=== PATIENT | male | born 1985 | race Caucasian/White ===

== ENCOUNTER 2020-10-16 17:35 | Emergency (ER) | payer MEDICAID ==
[~2020-10-16] VITALS: Ht 167.6 cm; Wt 70.0 kg
[2020-10-16 17:38] VITALS: BP 130/67
--- NOTE | 2020-10-16 18:00 | RAD ---
Exam: Right hand 3 views INDICATION: Laceration TECHNIQUE: Frontal, lateral and oblique views of the right hand Comparisons: None FINDINGS: Bone mineralization is normal. No acute or healed fractures. Soft tissue irregularity at the distal a spect of the second and third digit. No radiopaque foreign body. Joint spaces are well-maintained. IMPRESSION: Likely lacerations of the distal aspect of the second and third digit that underlying osseous abnorma lity or radiopaque foreign body identified. Electronically signed by: Yuriy Fisher MD (10/16/2020 5:57 PM) [facility]
[2020-10-16] MEDS ORDERED: DIPH,PERTUSS(ACELL),TET VAC/PF 0.5 ML SYRINGE. VAX IM ONE (18:15)
[2020-10-16] MEDS ORDERED: LIDOCAINE 1% Multi-Dose 20 ML VIAL. INJ ONE (18:15)
[2020-10-16] MEDS ORDERED: SULF1TAB24 PO (19:59)
[2020-10-16] MEDS ORDERED: SMZ/TMP 800/160MG TABLET. PO ONE (20:00)
--- NOTE | 2020-10-16 20:00 | PHYS DOC ---
Past Medical History Past Medical History: No Pertinent History (TORRES BERRIOS SSDS MK 2 ADVANCED OPERATOR) Past Surgical History: No Surgical History (TORRES BERRIOS APRN) Smoking Status: Never Smoker Alcohol Use: Occasionally (AGUSTINATORRES APRN) General Adult EDM: Chief Complaint: LACERATION/AVULSION HPI: HPI: Patient is a 35 year old 35-year-old male patient who presents to the ED today with right index finger and ring finger lacerations that occurred a couple minutes prior to coming to the ED after touching running blades of a lawnmower. Patient is right-handed. (TORRES BERRIOS Gerhard BABB) Review of Systems: Review of Systems: Constitutional: Denies fever or chills. [] Musculoskeletal: Denies back pain or joint pain. [] Integument: Right hand lacerations Neurologic: Denies headache, focal weakness or sensory changes. [] Psychiatric: Denies depression or anxiety. [] (ABRAHAMKEITORRES Guy APRN) Heart Score: C/O Chest Pain: N/A Risk Factors: Risk Factors: DM, Current or recent (<one month) smoker, HTN, HLP, family history of CAD, obesity. Risk Scores: Score 0 - 3: 2.5% MACE over next 6 weeks - Discharge Home Score 4 - 6: 20.3% MACE over next 6 weeks - Admit for Clinical Observation Score 7 - 10: 72.7% MACE over next 6 weeks - Early Invasive Strategies (TORRES BERRIOS APRN) Current Medications: Current Medications Medications (Trade) Dose Ordered Sig/Arash Start Time Stop Time Status Last Admin Dose Admin Diphtheria/ Tetanus/Acell Pertussis (ADACEL TDap SYRINGE) 0.5 ml ONCE ONCE 10/16/20 18:15 10/16/20 18:16 DC 10/16/20 18:26 0.5 ML Lidocaine HCl (Lidocaine 1% 20ml Vial) 20 ml 1X ONCE 10/16/20 18:15 10/16/20 18:16 DC 10/16/20 18:26 20 ML Trimethoprim/ Sulfamethoxazole (Bactrim Ds) 1 tab 1X ONCE 10/16/20 20:00 10/16/20 20:01 UNV (TORRES BERRIOS SSDS MK 2 ADVANCED OPERATOR) Allergies: Allergies: Allergies Coded Allergies Type Severity Reaction Last Updated Verified amoxicillin Allergy Intermediate 10/16/20 Yes (TORRES BERRIOS Gerhard SSDS MK 2 ADVANCED OPERATOR) Physical Exam: PE: Constitutional: Well developed, well nourished, no acute distress, non-toxic appearance. [] Skin: Right index finger ventral aspect with a C-shaped skin avulsion type lacer ation roughly 3 cm long, right middle finger ventral aspect distal end with another laceration roughly 3 cm, there is no obvious tendon involvement in this lacerations. Patient able to flex and extend the fingers with no difficulties. Adequate radial, medial, ulnar sensation to the right fingers. +2 right radial pulse. Cap refill less than 2 seconds the right fingers. Back: No tenderness, no CVA tenderness. [] Extremities: No tenderness, no cyanosis, no clubbing, ROM intact, no edema. [] Neurologic: Alert and oriented X 3, normal motor function, normal sensory func tion, no focal deficits noted. [] Psychologic: Affect normal, judgement normal, mood normal. [] (AGUSTINATORRES Gerhard SSDS MK 2 ADVANCED OPERATOR) Current Patient Data: Vital Signs: Vital Signs Date Time Temp Pulse Resp B/P (MAP) Pulse Ox O2 Delivery O2 Flow Rate FiO2 10/16/20 17:38 98.3 89 18 130/67 (88) 97 Room Air 98.3 (TONEBrooksTORRES Gerhard SSDS MK 2 ADVANCED OPERATOR) EKG: EKG: [] (TONETORRES Guy SSDS MK 2 ADVANCED OPERATOR) Radiology/Procedures: Radiology/Procedures: []PROCEDURE: HAND RIGHT 3V Exam: Right hand 3 views INDICATION: Laceration TECHNIQUE: Frontal, lateral and oblique views of the right hand Comparisons: None FINDINGS: Bone mineralization is normal. No acute or healed fractures. Soft tissue irregularity at the distal aspect of the second and third digit. No radiopaque foreign body. Joint spaces are well-maintained. IMPRESSION: Likely lacerations of the distal aspect of the second and third digit that underlying osseous abnormality or radiopaque foreign body identified. Electronically signed by: Yuriy Tompkins MD (10/16/2020 5:57 PM) [facility] DICTATED and SIGNED BY: YURIY TOMPKINS MD DATE: 10/16/20 [id number] Laceration/Wound Repair Wound Location: Right index finger middle finger lacerations Wound's Depth, Shape: C Wound Length (cm): Right index finger roughly 3 cm, right ring finger roughly 4 cm Wound Explored: clean Irrigated w/ Saline (ccs): 500 Betadine Prep?: Y Anesthesia: 1% of lidocaine Volume Anesthetic (ccs): 3 cc to the right index finger 6 cc to the right middle finger Wound Repaired With: Ethilon Suture Size/Type: 4.0 and 5.0 Number of Sutures: Right index finger 12 interrupted sutures, right middle finger 13 interrupted sutures Progress : Wound was covered with nonstick dressing (TORRES BERRIOS APRN) Course & Med Decision Making: Course & Med Decision Making Pertinent Labs and Imaging studies reviewed. (See chart for details) This is a 35-year-old male patient with a right index finger and right middle finger lacerations that were closed with stitches as noted in procedures. Tetanus updated. Wound care instructions and return precautions provided (TORRES BERRIOS APRN) Dragon Disclaimer: Dragon Disclaimer: This electronic medical record was generated, in whole or in part, using a voice recognition dictation system. (TORRES BERRIOS APRN) Departure Departure Impression: Primary Impression: Finger laceration Qualified Codes: S61.212A - Laceration without foreign body of right middle finger without damage to nail, initial encounter Disposition: 01 HOME / SELF CARE / HOMELESS Condition: STABLE Referrals: NO PCP (PCP) Follow-up with your doctor or the emergency room in 7 to 10 days for stitches to be removed Patient Instructions: Fingertip Laceration Additional Instructions: You have lacerations to the right fingers, please remove the dressing in 24 hours. Keep the areas open to air if not bleeding or draining. Apply Neosporin to the laceration site twice a day. Monitor the areas for any signs of infection including but not limited to increased redness, warmth, yellow drainage from the areas and return to the ED. Complete the antibiotics prescribed Scripts Sulfamethoxazole/Trimethoprim (BACTRIM DS TABLET) 1 Each Tablet 1 TAB PO BID for 7 Days, #14 TAB 0 Refills Prov: TORRES BERRIOS APRN 10/16/20 Attending Signature Attending Signature I have reviewed the PA/SLIP FEEDER's note and plan of care. I was available for cons ultation as needed during the patient's visit in the emergency department. I agree with the clinical impression, plan, and disposition. (KEN GUILLERMO DO) TORRES BRERIOS APRN October 16, 2020 20:00 KEN GUILLERMO DO October 17, 2020 00:10
== END 2020-10-16 20:08 | disposition home or self-care (01) ==
LOC: ER 17:35
DX: S61.212A Laceration without foreign body of right middle finger without damage to nail, initial encounter (principal); S61.210A Laceration without foreign body of right index finger without damage to nail, initial encounter; Z88.1 Allergy status to other antibiotic agents; W27.8XXA Contact with other nonpowered hand tool, initial encounter; Y93.89 Activity, other specified; Y92.89 Other specified places as the place of occurrence of the external cause; Y99.8 Other external cause status
CPT/HCPCS: 12002; 73130; 90471; 90715; 99283; J3490